=== PATIENT | female | born 1980 | race African-American/Black ===

== ENCOUNTER 2023-06-29 17:38 | Emergency (ER) | payer SELFPAY ==
[~2023-06-29] VITALS: Ht 170.2 cm; Wt 90.0 kg
[2023-06-29 17:42] VITALS: BP 136/90; PULSE 92; RESP 16; TEMP 98.5; O2SAT 100
[2023-06-29 20:18] LABS: HCG SCREEN NEGATIVE
[2023-06-29] MEDS: HALOPERIDOL LACTATE 5MG/ML VIAL IM STA (20:45)
[2023-06-29] MEDS: DIPHENHYDRAMINE 50MG/ML VIAL IM STA (20:45)
[2023-06-29] MEDS: TETANUS, DIPHTHERIA, PERTUSSIS VAC/PF 0.5ML (>10YR OLD) IM ONE (20:45)
[2023-06-29] MEDS: LIDOCAINE HCL 1% 20ML VIAL (Pyxis) INJ INFIL ONE (20:45)
[2023-06-29] MEDS: LORAZEPAM 2MG/ML INJ IM STA (20:45)
== END 2023-06-29 21:40 | disposition home or self-care (01) ==
LOC: ER 17:38
DX: S61.412A Laceration without foreign body of left hand, initial encounter (principal); F10.129 Alcohol abuse with intoxication, unspecified; G89.11 Acute pain due to trauma; Y08.89XA Assault by other specified means, initial encounter; Y93.89 Activity, other specified; Y92.89 Other specified places as the place of occurrence of the external cause; Y99.8 Other external cause status; Y90.6 Blood alcohol level of 120-199 mg/100 ml
CPT/HCPCS: 80320; 84703; 36415; 73120; 12002; 99284; Z7610 ×2; G0480